=== PATIENT | female | born 1995 | race Caucasian/White ===

== ENCOUNTER 2019-11-06 09:21 | Emergency (ER) | payer MEDICAID ==
[~2019-11-06] VITALS: Ht 149.9 cm; Wt 43.1 kg
[2019-11-06 09:32] VITALS: BP 125/77
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
--- NOTE | 2019-11-06 09:47 | NUR ---
Dr. Bello evaluating pt at bedside
[2019-11-06] MEDS ORDERED: ACETAMINOPHEN 325 MG TAB PO ONE (09:55)
--- NOTE | 2019-11-06 10:02 | NUR ---
Pt going to xray via wheelchair
--- NOTE | 2019-11-06 10:10 | NUR ---
Pt returned from xray
[2019-11-06 10:55] VITALS: BP 125/77
--- NOTE | 2019-11-06 10:55 | NUR ---
Patient discharged with v/s stable. Written and verbal after care instructions given and explained. Patient alert, oriented and verbalized understanding of instructions. Ambulatory with steady gait. All questions addressed prior to discharge. ID band removed. Patient advised to follow up with PMD. Rx of Naproxen 375mg was given. Patient educated on indication of medication including possible reaction and side effects. Opportunity to ask questions provided and answered.
== END 2019-11-06 10:55 | disposition home or self-care (01) ==
LOC: MED 09:21
DX: S16.1XXA Strain of muscle, fascia and tendon at neck level, initial encounter (principal); S00.83XA Contusion of other part of head, initial encounter; Y04.2XXA Assault by strike against or bumped into by another person, initial encounter; Y93.89 Activity, other specified; Y92.89 Other specified places as the place of occurrence of the external cause; Y99.8 Other external cause status
CPT/HCPCS: 72040; 99283; Q0092